=== PATIENT | female | born 2000 | race Caucasian/White ===

== ENCOUNTER → 2023-05-09 15:51 | Outpatient (BNVA) | payer BC, SELFPAY | PROVIDERS: Visit Provider Nurse Practitioner | DX: F41.1 Generalized anxiety disorder (principal) | CPT/HCPCS: 84443 ==

== ENCOUNTER → 2023-07-20 16:05 | Outpatient (BNVA) | payer BC, MEDICAID, SELFPAY | PROVIDERS: Visit Provider Emergency Medicine | DX: Z32.01 Encounter for pregnancy test, result positive (principal); N92.6 Irregular menstruation, unspecified | CPT/HCPCS: 81025; 84703 ==